=== PATIENT | male | born 1980 | race American Indian/Alaskan Native ===

== ENCOUNTER 2017-11-24 06:49 | Emergency (ER) | payer SELFPAY ==
[2017-11-24 07:21] VITALS: BP 145/96
[2017-11-24] MEDS ORDERED: MOTRIN PO ONE (07:23)
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
--- NOTE | 2017-11-24 08:12 | XRay Report ---
LEFT RIBS, 3 VIEWS: History: pain. Routine views of the rib cage demonstrate normal mineralization with no significant contour abnormalities, fractures or destructive lesions. PA view of the chest demonstrates no underlying cardiopulmonary abnormalities, fluid or pneumothorax. IMPRESSION: Unremarkable left rib series.
== END 2017-11-24 08:55 | disposition home or self-care (01) ==
LOC: ED 06:49
DX: S20.211A Contusion of right front wall of thorax, initial encounter (principal); F17.200 Nicotine dependence, unspecified, uncomplicated; V89.2XXA Person injured in unspecified motor-vehicle accident, traffic, initial encounter; Y93.89 Activity, other specified; Y92.89 Other specified places as the place of occurrence of the external cause; Y99.8 Other external cause status
CPT/HCPCS: 93005; 93010; 99283